=== PATIENT | male | born 1940 | race Caucasian/White ===

== ENCOUNTER 2024-06-17 05:43 | Observation (INO) ==
[2024-06-17] MEDS ORDERED: Famotidine IV 10 MG/ML 2 ml VIAL (20 mg) ONE (06:22)
[2024-06-17] MEDS ORDERED: Dexamethasone IV 4 MG/ML VIAL 1 ml VIAL ONE (06:22)
[2024-06-17] MEDS: Famotidine IV 10 MG/ML 2 ml VIAL (20 mg) IV ONE (06:41)
[2024-06-17] MEDS: Dexamethasone IV 4 MG/ML VIAL 1 ml VIAL IV SLOW PU ONE (06:41)
[2024-06-17] MEDS ORDERED: fentaNYL 100 mcg/2 ml 50 MCG/ML VIAL ONE ×3 (07:50→10:34)
[2024-06-17] MEDS ORDERED: Lidocaine 2% PF 5 ML VIAL ONE (07:51)
[2024-06-17] MEDS ORDERED: Rocuronium 50 mg VIAL 10 mg/ml 5 ml VIAL (50 mg) ONE ×2 (07:51→09:12)
[2024-06-17] MEDS ORDERED: Propofol 10 MG/ML 20 ML BTL ONE (07:51)
[2024-06-17] MEDS ORDERED: Ondansetron 4 mg VIAL 2 MG/ML 2 ml VIAL ONE (09:39)
[2024-06-17] MEDS ORDERED: Naloxone 0.4 mg VIAL 0.4 mg/ml 1 ml VIAL IV PRN (10:30)
[2024-06-17] MEDS: fentaNYL 100 mcg/2 ml 50 MCG/ML VIAL IV PRN (10:35)
[2024-06-17] MEDS ORDERED: Ondansetron 4 mg VIAL 2 MG/ML 2 ml VIAL IV PRN (11:19)
[2024-06-17] MEDS ORDERED: Butalb/Acetamin/Caff TAB 325-50-40MG PO PRN (13:06)
[2024-06-17] MEDS: Lactated Ringers 1000 ml BAG 1,000 ML IV SCH (13:07)
[2024-06-17] MEDS: Buffered Lidocaine 1% SYRIN 1 ml INTRADERM ONE (13:07)
[2024-06-17] MEDS: LACTATED RINGERS 1000 ML BAG IV ONE (23:15)
[2024-06-18 06:09] LABS: ABS Lymphocytes 1.1 10^3/uL (1.0-4.8); Eosinophil % 0.1 %; Hematocrit 28.9 % (38-53); Hemoglobin 9.8 g/dL (13.2-16.3); Lymphocyte % 13.5 %; Mean Corpuscular Hemoglobin 31.4 pg (27-33); Mean Corpuscular Hgb Conc 34.1 g/dL (31-36); Mean Platelet Volume 7.6 fL (7.5-11.2); Platelet Count 228 10^3/uL (150-450); Red Blood Count 3.14 10^6/uL (4.06-5.63); Red Cell Distribution Width 14.2 % (12-17); White Blood Count 8.1 10^3/uL (3.6-10.2)
[2024-06-18 06:25] LABS: Calcium 8.7 mg/dL (8.6-10.3); Creatinine, Serum 0.79 mg/dL (0.67-1.17); Potassium 4.8 mmol/L (3.5-5.0); eGFR CKD-EPI 88.7 (>60)
[2024-06-18] MEDS: Ferric Gluconate IV 125 MG in NS 0.9% 100 ml BAG 100 ML IVPB ONE (08:49)
[2024-06-18] MEDS: Calcium Polycarbophil 625mg TB PO SCH (08:50)
[2024-06-19 10:34] LABS: ABS Eosinophils 0.1 10^3/uL (0.0-0.5); ABS Lymphocytes 0.9 10^3/uL (1.0-4.8); ABS Monocytes 0.7 10^3/uL (0.0-1.1); ABS Nucleated RBC 0.01 10^3/ul; Eosinophil % 0.9 %; Hemoglobin 9.7 g/dL (13.2-16.3); Lymphocyte % 13.3 %; Mean Corpuscular Hemoglobin 30.6 pg (27-33); Mean Corpuscular Hgb Conc 33.3 g/dL (31-36); Mean Corpuscular Volume 92.1 fL (80-97); Mean Platelet Volume 7.2 fL (7.5-11.2); Nucleated Red Blood Cells % 0.1 %/100WBC (0.0-0.8); Platelet Count 228 10^3/uL (150-450); Red Blood Count 3.15 10^6/uL (4.06-5.63); Red Cell Distribution Width 14.3 % (12-17); White Blood Count 6.8 10^3/uL (3.6-10.2)
[2024-06-19 14:23] VITALS: BP 128/75
== END 2024-06-19 17:05 | disposition home or self-care (01) ==
LOC: OR 05:43 → SSU 05:43
PROVIDERS: ADMIT Urology; ATTEND Urology